=== PATIENT | female | born 1960 | race Two or more races ===

== ENCOUNTER 2024-10-17 08:41 | Outpatient (CLI) | payer OTHER | END 2024-10-17 08:44 | disposition home or self-care (01) | LOC: SONOGRAMA 08:41 | PROVIDERS: ATTEND Pathology Anatomic Pathology | DX: E04.1 Nontoxic single thyroid nodule (principal) ==

== ENCOUNTER 2024-12-15 07:12 | Outpatient (CLI) | payer OTHER | END 2024-12-15 07:13 | disposition home or self-care (01) | LOC: NUCLEAR 07:12 | DX: E21.0 Primary hyperparathyroidism (principal) ==